=== PATIENT | female | born 1980 | race Caucasian/White ===

== ENCOUNTER 2018-06-22 12:47 | Emergency (ER) | payer OTHER ==
[2018-06-22 13:45] LABS: ADD MAN DIFF? NO
[2018-06-22 13:47] LABS: BASOPHIL # 0.1 10^3/ul (0.0-0.1); BASOPHILS % 0.9 % (0.0-2.0); EOSINOPHILS # 0.1 10^3/ul (0.0-0.5); HEMATOCRIT 45.5 % (37.0-47.0); HEMOGLOBIN 14.4 g/dl (12.0-16.0); LYMPHOCYTES # 1.3 10^3/ul (0.8-2.9); LYMPHOCYTES % 20.8 % (15.0-51.0); MEAN CORPUSCULAR HEMOGLOBIN 29.3 pg (29.0-33.0); MEAN CORPUSCULAR HGB CONC 31.6 g/dl (32.0-37.0); MEAN CORPUSCULAR VOLUME 92.7 fl (82.0-101.0); MEAN PLATELET VOLUME 10.4 fl (7.4-10.4); MONOCYTE # 0.3 10^3/ul (0.3-0.9); NEUTROPHIL # 4.5 10^3/ul (1.6-7.5); NEUTROPHILS % 70.2 % (39.0-77.0); PLATELET COUNT 667 10^3/UL (140-415); RED BLOOD COUNT 4.91 10^6/ul (4.20-5.40); RED CELL DISTRIBUTION WIDTH 15.5 % (11.5-14.5)
[2018-06-22 13:47] LABS: WHITE BLOOD COUNT 6.4 10^3/ul (4.8-10.8)
[2018-06-22 13:57] LABS: ADD UMIC YES; UR ASCORBIC ACID NEGATIVE (NEGATIVE); UR BACTERIA FEW /HPF (NONE SEEN); UR BILIRUBIN (Dip) NEGATIVE (NEGATIVE); UR BLOOD (Dip) 3+ mg/dL (NEGATIVE); UR CLARITY CLEAR (CLEAR); UR COLOR YELLOW (YELLOW); UR GLUCOSE (Dip) NEGATIVE (NEGATIVE); UR KETONES (Dip) NEGATIVE (NEGATIVE); UR LEUKOCYTE ESTERASE (Dip) NEGATIVE Leu/ul (NEGATIVE); UR NITRITE (Dip) NEGATIVE (NEGATIVE); UR RBC > 182 /HPF (0-5); UR SPECIFIC GRAVITY (Dip) 1.012 (1.003-1.030); UR TOTAL PROTEIN (Dip) NEGATIVE (NEGATIVE); UR UROBILINOGEN (Dip) NEGATIVE (NEGATIVE); UR WBC 18 /HPF (0-5)
== END 2018-06-22 14:59 | disposition home or self-care (01) ==
LOC: FTE 12:47
DX: O20.9 Hemorrhage in early pregnancy, unspecified (principal); R10.2 Pelvic and perineal pain; Z3A.01 Less than 8 weeks gestation of pregnancy
CPT/HCPCS: 36415; 76801; 81001; 84702; 85025; 86900; 86901; 99284-25

== ENCOUNTER 2018-06-24 09:45 | Emergency (ER) | payer OTHER | END 2018-06-24 12:05 | disposition home or self-care (01) | LOC: FTE 09:45 | DX: O20.9 Hemorrhage in early pregnancy, unspecified (principal) | CPT/HCPCS: 84702; 99282 ==

== ENCOUNTER 2018-07-03 15:43 | Emergency (ER) | payer OTHER ==
[2018-07-03] MEDS: ONDANSETRON (ODT) 4 MG TAB ODT (16:36)
== END 2018-07-03 17:15 | disposition home or self-care (01) ==
LOC: FTE 15:43
DX: R11.10 Vomiting, unspecified (principal); R19.7 Diarrhea, unspecified; R40.2412 Glasgow coma scale score 13-15, at arrival to emergency department
CPT/HCPCS: 99283